=== PATIENT | female | born 1990 | race Caucasian/White ===

== ENCOUNTER 2016-10-10 09:29 | Emergency (ER) ==
[2016-10-10 09:46] VITALS: BP 127/79; BMI 25.9
--- NOTE | 2016-10-10 09:48 | ED.PDOC ---
General ED Provider: Dr. KINDRA VALENTINE JR Chief Complaint: Back Pain Stated Complaint: Intermittent pain rt thoracic back x 2-3 days. States unwilling to go to [place] to [employer]. "I have a lot to do." Pt is 24 weeks . Thinks may be dehydrated although has been drinking a lot of water. Denies urinary probs.[End]2-3 days 97.3 94 20 99% 127/79 03/05 Time Seen by Physician: 09:48 Mode of Arrival: Walk-In Information Source: Patient Exam Limitations: No limitations Primary Care Provider: MARY CUMMINGS Nursing and Triage Documentation Reviewed and Agree: No Review of Systems - Review Of Systems Constitutional: Reports: Fever, Malaise Eyes: Reports: No symptoms Ears, Nose, Mouth, Throat: Reports: No symptoms Respiratory: Reports: No symptoms Cardiac: Reports: No symptoms GI: Reports: No symptoms : Reports: Flank pain Musculoskeletal: Reports: Back pain Skin: Reports: No symptoms Neurological: Reports: No symptoms Endocrine: Reports: No symptoms Hematologic/Lymphatic: Reports: No symptoms All Other Systems: Other Past Medical History - Past Medical History Endocrine: Reports: None Cardiovascular: Reports: Other (MURMUR) Respiratory: Reports: None Hematological: Reports: None Gastrointestinal: Reports: None Genitourinary: Reports: None Neuro/Psych: Reports: None Musculoskeletal: Reports: None Cancer: Reports: None Last Menstrual Period: 24 weeks - Surgical History General Surgical History: Reports: - Family History Family History: Reports: None - Social History Smoking Status: Current every day smoker, Light tobacco smoker Hx Substance Use: No Alcohol Screening: None Physical Exam - Physical Exam Appearance: Well-appearing, Thin Pain Distress: Mild Neck: Supple Respiratory: Airway patent GI/: Soft, Nontender, No masses, Bowel sounds normal, No Organomegaly Musculoskeletal: Normal strength, ROM intact, No edema, No calf tenderness Skin: Warm, Dry, Normal color Neurological: Sensation intact, Motor intact, Reflexes intact, Cranial nerves intact, Alert, Oriented Physician Notification - Case Discussed Physician Notified: CALLED DR ANNE Time of Notification: 10:20 (IN A ROOM 11:01) Physician Notified: DAYANA Time of Notification: 11:13 (SAW FOLLOW UP WITH PARTNER REC KEFLEX ROCEPHIN FLUIDS USUAL FOLLOW UP THIS SATURDAY) Critical Care Note - Critical Care Note Total Time (mins): 0 Course - Course Orders, Labs, Meds: Lab Review 10/10/16 09:55 Urine Color Yellow Urine Clarity Cloudy Urine pH 6.0 Ur Specific [place] 1.020 Urine Protein 1+ Urine Glucose (UA) Negative Urine Ketones 1+ Urine Blood Trace-intact Urine Nitrite Positive Urine Bilirubin 1+ Urine Urobilinogen 1.0 Ur Leukocyte Esterase 3+ Urine Microscopic WBC Tntc Ur Squamous Epith Cells 2-5 Urine Bacteria 2+ Orders Category Date Time Status UA [URINALYSIS C & S IF INDICATED] Stat LAB 10/10/16 09:55 Completed URINE CULTURE Routine LAB 10/10/16 10:13 Received Ceftriaxone Sodium [Rocephin] MEDS 10/10/16 11:07 Discontinued 1 gm IM ONCE STA Lidocaine HCl/Pf [Lidocaine 1 % Amp 5 ml (Sutures)] MEDS 10/10/16 11:07 Discontinued 2.1 ml IM ONCE STA Medications Discontinued Medications Generic Name Dose Route Start Last Admin Trade Name Freq PRN Reason Stop Dose Admin Ceftriaxone Sodium 1 gm 10/10/16 11:07 Rocephin IM 10/10/16 11:08 ONCE STA Lidocaine HCl 2.1 ml 10/10/16 11:07 Lidocaine 1 % Amp 5 Ml (Sutures) IM 10/10/16 11:08 ONCE STA Vital Signs: Temp Pulse Resp BP Pulse Ox 10/10/16 10:43 99.4 F 10/10/16 09:33 97.3 F L 94 H 20 127/79 99 Departure - Departure Time of Disposition: 10:59 Disposition: TSF SHORT-TRM HOSP Discharge Problem: UTI (urinary tract infection) in , antepartum Instructions: Urinary Tract Infection in (ED) Condition: Good Pt referred to PMD for follow-up: Yes Additional Instructions: FOLLOW UP [facility] SCHEDULED ON SATURDAY ANTIBIOTIC FOR ONE WEEK FOLLOW UP WITH [facility] SATURDAY SCHEDULED TYLENOL FOR PAIN DRINK 6 TO 8 EIGHT OUNCE CUPS OF WATER DAILY TWO EXTRA CUPS(WITH 650MG TYLENOL) IF PAIN OR CRAMPING RETURN IF FEVER OVER 1`01.0 IF VOMITING MORE THAN THREE TIMES OR BLOOD IN URINE Prescriptions: Cephalexin [Keflex] 500 mg PO QID #20 capsule Allergies/Adverse Reactions: Allergies aspirin Adverse Reaction (Verified 10/10/16 09:42) Home Medications: Ambulatory Orders Cephalexin [Keflex] 500 mg PO QID #20 capsule 10/10/16
[2016-10-10 10:03] LABS: BILIRUBIN,URINE 1+ (NEGATIVE); KETONES,URINE 1+ (NEGATIVE); LEUKOCYTE ESTERASE ,URINE 3+ (NEGATIVE); NITRITE,URINE Positive (NEGATIVE); PROTEIN,URINE 1+ (NEGATIVE); URINE, BLOOD Trace-intact (NEGATIVE)
[2016-10-10 10:10] LABS: ADD URINE MICROSCOPIC YES
[2016-10-10 10:12] LABS: BACTERIA,URINE 2+ (NOT PRESENT)
[2016-10-10 10:44] VITALS: TEMP 99.4
[2016-10-10] MEDS ORDERED: ROCEPHIN IM STA (11:07)
[2016-10-10] MEDS ORDERED: LIDOCAINE 1 % AMP 5 ML (SUTURES) IM STA (11:07)
== END 2016-10-10 11:59 | disposition short-term general hospital (02) ==
LOC: ED 09:29
DX: O23.42 Unspecified infection of urinary tract in pregnancy, second trimester (principal); F17.210 Nicotine dependence, cigarettes, uncomplicated
CPT/HCPCS: 81001; 87086; 87186; 96372; 99282

== ENCOUNTER 2016-12-24 19:21 | Emergency (ER) ==
[2016-12-24 19:27] VITALS: BP 125/80; TEMP 97.8; BMI 26.5
[2016-12-24] MEDS ORDERED: DEMEROL 25 MG/ML SYRINGE IM STA (19:35)
[2016-12-24] MEDS ORDERED: PHENERGAN 25 MG/ML VIAL IM STA (19:36)
--- NOTE | 2016-12-24 19:39 | ED.PDOC ---
General ED Provider: Dr. EMELIA RODRIGES Chief Complaint: Tooth Problem Stated Complaint: left lower tooth pain,. tyl;enol not helping Time Seen by Physician: 19:37 Mode of Arrival: Walk-In Information Source: Patient Primary Care Provider: MARY CUMMINGS Nursing and Triage Documentation Reviewed and Agree: Yes EENT Complaint Exam - Dental/Oral Complaint/Exam Mechanism of Injury: No known trauma Symptoms Are: Still present Timing: Constant Initial Severity: Moderate Current Severity: Moderate Character: Reports: Aching, Throbbing Aggravating: Reports: Cold, Chewing Alleviating: Reports: None Associated Signs and Symptoms: Reports: Foul odor. Denies: Swelling, Discharge , Fever, Foul taste in mouth Related History: Reports: Similar episode Cardiac Risk Factors: Reports: None Dental/Oral Surgical History: Reports: None Tooth Findings: Present: Percussion tenderness, Gross caries Cervical Lymphadenopathy Present: No Facial Swelling Present: No Teeth Picture: 1 - caries Differential Diagnoses: Dental Caries Review of Systems - Review Of Systems Constitutional: Reports: No symptoms Eyes: Reports: No symptoms Ears, Nose, Mouth, Throat: Reports: Mouth pain Respiratory: Reports: No symptoms Cardiac: Reports: No symptoms GI: Reports: No symptoms : Reports: No symptoms Musculoskeletal: Reports: No symptoms Skin: Reports: No symptoms Neurological: Reports: No symptoms Endocrine: Reports: No symptoms Hematologic/Lymphatic: Reports: No symptoms All Other Systems: Reviewed and Negative Past Medical History - Past Medical History Previously Healthy: Yes Endocrine: Reports: None Cardiovascular: Reports: Other (MURMUR) Respiratory: Reports: None Hematological: Reports: None Gastrointestinal: Reports: None Genitourinary: Reports: None Neuro/Psych: Reports: None Musculoskeletal: Reports: None Cancer: Reports: None Last Menstrual Period: UNK - Surgical History General Surgical History: Reports: - Family History Family History: Reports: None - Social History Smoking Status: Current every day smoker, Light tobacco smoker Smoking Cessation Counseling Time: > 3 min - 10 min Hx Substance Use: No Alcohol Screening: None - Immunizations Tetanus Shot up to Date: No Physical Exam - Physical Exam Appearance: Well-appearing, No pain distress, Well-nourished Eyes: GAMA, EOMI, Conjunctiva clear ENT: Ears normal, Nose normal, Oropharynx normal Respiratory: Airway patent, Breath sounds clear, Breath sounds equal, Respirations nonlabored Cardiovascular: RRR, Pulses normal, No rub, No murmur GI/: Soft, Nontender, No masses, Bowel sounds normal, No Organomegaly Musculoskeletal: Normal strength, ROM intact, No edema, No calf tenderness Skin: Warm, Dry, Normal color Neurological: Sensation intact, Motor intact, Reflexes intact, Cranial nerves intact, Alert, Oriented Psychiatric: Affect appropriate, Mood appropriate Critical Care Note - Critical Care Note Total Time (mins): 0 Course - Course Orders, Labs, Meds: Orders Category Date Time Status Meperidine HCl/Pf [Demerol 25 mg/ml Syringe] MEDS 12/24/16 19:35 Stat 25 mg IM ONCE STA Promethazine HCl [Phenergan 25 mg/ml Vial] MEDS 12/24/16 19:36 Stat 12.5 mg IM ONCE STA Medications Discontinued Medications Generic Name Dose Route Start Last Admin Trade Name Len PRN Reason Stop Dose Admin Meperidine HCl 25 mg 12/24/16 19:35 Demerol 25 Mg/Ml Syringe IM 12/24/16 19:36 ONCE STA Vital Signs: Temp Pulse Resp BP Pulse Ox 12/24/16 19:22 97.8 F 68 20 125/80 99 Departure - Departure Time of Disposition: 19:41 Disposition: HOME SELF-CARE Discharge Problem: Toothache Instructions: Toothache (ED) Condition: Stable Pt referred to PMD for follow-up: Yes Additional Instructions: needs f/u with dentist. medication side effects discussed Prescriptions: Oxycodone-Acetaminophen 5-325 [Percocet 5-325] 1 tab PO Q8H #10 tablet Allergies/Adverse Reactions: Allergies aspirin Adverse Reaction (Verified 12/24/16 19:27) Home Medications: Ambulatory Orders Oxycodone-Acetaminophen 5-325 [Percocet 5-325] 1 tab PO Q8H #10 tablet 12/24/16 Disposition Discussed With: Patient, Family
[2016-12-24] MEDS ORDERED: PERCOCET 7.5-325 PO STA (19:44)
== END 2016-12-24 19:52 | disposition home or self-care (01) ==
LOC: ED 19:21
DX: K08.89 Other specified disorders of teeth and supporting structures (principal); K02.7 Dental root caries; F17.210 Nicotine dependence, cigarettes, uncomplicated
CPT/HCPCS: 99282

== ENCOUNTER 2017-01-28 11:40 | Emergency (ER) ==
[2017-01-28 11:47] VITALS: TEMP 98.7; BMI 27.6
[2017-01-28] MEDS ORDERED: MORPHINE 2 MG/ML SYRINGE IM STA (11:52)
[2017-01-28] MEDS ORDERED: ZOFRAN 4 MG/2 ML IM STA (11:52)
[2017-01-28] MEDS ORDERED: DECADRON 4 MG/ML SDV IM STA (11:52)
[2017-01-28] MEDS ORDERED: LIDOCAINE 1 % AMP 5 ML (SUTURES) IM STA (11:52)
[2017-01-28] MEDS ORDERED: ROCEPHIN IM STA (11:52)
--- NOTE | 2017-01-28 12:33 | CT ---
EXAM: CT of the facial bones. HISTORY: Right facial swelling. COMPARISON: None. TECHNIQUE: Contiguous axial images at 3 mm intervals were obtained through the paranasal sinuses. Sagittal and coronal reformats were reviewed. No contrast was given. FINDINGS: There is soft tissue swelling over the right mandible extending over the right maxilla. N o organized fluid collections are seen. There is no osseous destruction. There is a submandibular lymph node on the right, measuring up to 12 x 6 mm. No other significant adenopathy is seen. The p arotid and submandibular glands appear normal and symmetric. The sinuses are well-aerated. There are no air-fluid levels to suggest acute sinusitis. There is d iffuse mucosal thickening of the maxillary sinuses, right greater left. No definite air-fluid level s are seen. There is mucosal thickening ethmoid sinuses as well. The ostiomeatal units and frontoet hmoidal recesses are patent bilaterally. The nasal septum is in the midline. No anatomic variants are seen. The orbits are intact. Soft tissues are unremarkable. The osseous structures are unrema rkable. IMPRESSION: 1. Soft tissue swelling over the right side of the face without focal fluid collection or mass lesi on. No osseous destruction is seen. 2. Chronic sinusitis. 3. Small submandibular lymph node which is not pathologic by size criteria.
--- NOTE | 2017-01-28 12:50 | ED.PDOC ---
General ED Provider: Dr. OCTAVIO OZUNA-ER Chief Complaint: Non-specific Complaint Stated Complaint: my tooth hurts and its swollen Time Seen by Physician: 11:45 Mode of Arrival: Walk-In Information Source: Patient Exam Limitations: No limitations Primary Care Provider: MARY CUMMINGS Nursing and Triage Documentation Reviewed and Agree: Yes EENT Complaint Exam - Dental/Oral Complaint/Exam Mechanism of Injury: Unknown Onset/Duration: 2 days Symptoms Are: Still present Timing: Constant Initial Severity: Mild Current Severity: Mild Location: right max pain Character: Reports: Dull, Aching, Throbbing Aggravating: Reports: Heat, Cold, Chewing Alleviating: Reports: None Associated Signs and Symptoms: Reports: Swelling. Denies: Discharge, Fever, Foul odor, Foul taste in mouth Related History: Reports: Previous tooth problem Cardiac Risk Factors: Reports: None Tooth Findings: Present: Percussion tenderness, Abcess Cervical Lymphadenopathy Present: No Facial Swelling Present: Yes Bleeding Present: No Septal Hematoma: No Foreign Body Present: No Dysphagia Present: No Drooling Present: No Asymmetrical Tonsillar Swelling Present: No Uvula Midline: Yes Alysa-tonsillar Fluctuence: No Trismus Present: No Palatal Petechiae Present: No Scarlatinaform Rash Present: No Differential Diagnoses: Dental Abcess, Dental Caries Review of Systems - Review Of Systems Constitutional: Reports: No symptoms Eyes: Reports: No symptoms Ears, Nose, Mouth, Throat: Reports: Mouth swelling Respiratory: Reports: No symptoms Cardiac: Reports: No symptoms GI: Reports: No symptoms : Reports: No symptoms Musculoskeletal: Reports: No symptoms Skin: Reports: No symptoms Neurological: Reports: No symptoms Endocrine: Reports: No symptoms Hematologic/Lymphatic: Reports: No symptoms All Other Systems: Reviewed and Negative Past Medical History - Past Medical History Previously Healthy: Yes Endocrine: Reports: None Cardiovascular: Reports: Other (MURMUR) Respiratory: Reports: None Hematological: Reports: None Gastrointestinal: Reports: None Genitourinary: Reports: None Neuro/Psych: Reports: None Musculoskeletal: Reports: None Cancer: Reports: None Last Menstrual Period: now - Surgical History General Surgical History: Reports: - Family History Family History: Reports: None - Social History Smoking Status: Current every day smoker, Light tobacco smoker Hx Substance Use: No Alcohol Screening: None Lives: With family Physical Exam - Physical Exam Appearance: Well-appearing, No pain distress, Well-nourished Pain Distress: Mild Eyes: GAMA, EOMI, Conjunctiva clear ENT: Ears normal, Nose normal (noted tenderness over right upper incisor ) Neck: Supple Respiratory: Airway patent, Breath sounds clear, Breath sounds equal, Respirations nonlabored Cardiovascular: RRR GI/: Soft Musculoskeletal: Normal strength Skin: Warm Neurological: Sensation intact Psychiatric: Affect appropriate, Mood appropriate Interpretation - Radiology Interpretation Radiology Interpretation By: Radiologist Radiology Results: Positive Exam Interpreted: CT Scan Critical Care Note - Critical Care Note Total Time (mins): 0 Course - Course Orders, Labs, Meds: Orders Category Date Time Status Ceftriaxone Sodium [Rocephin] MEDS 01/28/17 11:52 Discontinued 1 gm IM ONCE STA Dexamethasone 4 mg/ml Inj [Decadron 4 mg/ml Sdv] MEDS 01/28/17 11:52 Discontinued 4 mg IM ONCE STA Lidocaine HCl/Pf [Lidocaine 1 % Amp 5 ml (Sutures)] MEDS 01/28/17 11:52 Discontinued 2.1 ml IM ONCE STA Morphine Sulfate [Morphine 2 mg/ml Syringe] MEDS 01/28/17 11:52 Discontinued 2 mg IM ONCE STA Ondansetron HCl/Pf [Zofran 4 mg/2 ml] MEDS 01/28/17 11:52 Discontinued 4 mg IM ONCE STA CT MAXILLOFACIAL W/O CONTRAST Stat RADS 01/28/17 11:52 Completed Medications Discontinued Medications Generic Name Dose Route Start Last Admin Trade Name Freq PRN Reason Stop Dose Admin Ceftriaxone Sodium 1 gm 01/28/17 11:52 Rocephin IM 01/28/17 11:53 ONCE STA Dexamethasone Sodium Phosphate 4 mg 01/28/17 11:52 Decadron 4 Mg/Ml Sdv IM 01/28/17 11:53 ONCE STA Lidocaine HCl 2.1 ml 01/28/17 11:52 Lidocaine 1 % Amp 5 Ml (Sutures) IM 01/28/17 11:53 ONCE STA Morphine Sulfate 2 mg 01/28/17 11:52 Morphine 2 Mg/Ml Syringe IM 01/28/17 11:53 ONCE STA Ondansetron HCl 4 mg 01/28/17 11:52 Zofran 4 Mg/2 Ml IM 01/28/17 11:53 ONCE STA Vital Signs: Temp Pulse Resp BP Pulse Ox 01/28/17 11:42 98.7 F 57 L 16 180/92 H 96 Departure - Departure Time of Disposition: 12:50 Disposition: HOME SELF-CARE Discharge Problem: Dental abscess Instructions: Dental Abscess (ED) Condition: Good Pt referred to PMD for follow-up: Yes Additional Instructions: clindamycni 150mg tid x 7days--medrol dose pack--norco 5mg q 4hrs prn pain #10-- f/u with dentist ed Allergies/Adverse Reactions: Allergies aspirin Adverse Reaction (Verified 01/28/17 11:48) Home Medications: Ambulatory Orders 1 [No Reported Medications] 01/28/17 Disposition Discussed With: Patient, Family
[2017-01-28 13:03] VITALS: BP 150/85
== END 2017-01-28 13:00 | disposition home or self-care (01) ==
LOC: ED 11:40
DX: K04.7 Periapical abscess without sinus (principal); F17.210 Nicotine dependence, cigarettes, uncomplicated
CPT/HCPCS: 99283

== ENCOUNTER 2017-09-24 08:38 | Outpatient (CLI) | END 2017-09-24 08:39 | disposition home or self-care (01) | LOC: LAB 08:38 | PROVIDERS: ATTEND Family Medicine | DX: Z00.00 Encounter for general adult medical examination without abnormal findings (principal); R22.0 Localized swelling, mass and lump, head | CPT/HCPCS: 36415; 80053; 80061; 81001; 84439; 84443; 85025 ==